=== PATIENT | female | born 2000 | race Caucasian/White ===

== ENCOUNTER 2021-05-06 19:25 | Emergency (ER) | payer SELFPAY ==
[~2021-05-06] VITALS: Ht 160 cm; Wt 55.0 kg
[2021-05-06] MEDS ORDERED: SODIUM CHLORIDE 0.9% 1,000 ML IV ONE (21:15)
[2021-05-06] MEDS ORDERED: LORAZEPAM 2MG/ML CPJ IV ONE (21:15)
[2021-05-06 21:32] LABS: BASOPHILS % 0.8 % (0.0-2.0); EOSINOPHILS % 1.1 % (0.0-5.0); HEMATOCRIT. 33.3 % (36.0-48.0); HEMOGLOBIN. 11.2 g/dL (12.0-16.0); LYMPHOCYTES % 36.5 % (20.0-50.0); MEAN CORPUSCULAR HEMOGLOBIN 28.7 pg (28.0-32.0); MEAN CORPUSCULAR VOLUME 85.3 fL (81.0-99.0); MEAN PLATELET VOLUME 8.4 fl (7.4-10.4); MONOCYTES % 9.4 % (2.0-8.0); NEUTROPHILS % 52.2 % (40.0-76.0); PLATELET 286 x1000/uL (130-400); RED CELL DISTRIBUTION WIDTH 13.8 % (11.6-14.6)
[2021-05-06 21:37] LABS: CHLORIDE 110 mEq/L (98-107)
[2021-05-06 21:42] LABS: ETHANOL BLOOD < 10 mg/dL; HCG SCREEN NEGATIVE
[2021-05-07 06:41] VITALS: BP 95/55
== END 2021-05-07 13:04 | disposition home or self-care (01) ==
LOC: ER 19:25 → EDBD 19:25 → ER 05-07 13:04
DX: T43.621A Poisoning by amphetamines, accidental (unintentional), initial encounter (principal); T42.71XA Poisoning by unspecified antiepileptic and sedative-hypnotic drugs, accidental (unintentional), initial encounter; R41.82 Altered mental status, unspecified; I95.2 Hypotension due to drugs; F15.129 Other stimulant abuse with intoxication, unspecified; Y92.480 Sidewalk as the place of occurrence of the external cause; Z59.02 Unsheltered homelessness
CPT/HCPCS: 36415; 70450; 80053; 80320; 84703; 85025; 96360; 96361; 99285; J7030; Z7610; G0480